=== PATIENT | male | born 1955 | race Caucasian/White ===

== ENCOUNTER 2018-09-18 22:31 | Emergency (ER) | payer MEDICAID ==
[~2018-09-18] VITALS: Ht 170.2 cm; Wt 68.5 kg
[2018-09-18 22:46] VITALS: BP 189/113
[2018-09-19] MEDS ORDERED: TRAM50TA2 PO (01:28)
== END 2018-09-19 02:15 | disposition home or self-care (01) ==
LOC: ER 22:32
DX: K02.9 Dental caries, unspecified (principal); Z98.890 Other specified postprocedural states; Z79.899 Other long term (current) drug therapy
CPT/HCPCS: 99283

== ENCOUNTER 2018-10-08 04:08 | Emergency (ER) | payer MEDICAID ==
[~2018-10-08] VITALS: Ht 170.2 cm; Wt 77.3 kg
[2018-10-08] MEDS ORDERED: LORazepam 2 mg/ml vial IV ONE (04:25)
[2018-10-08] MEDS ORDERED: ondansetron/PF 4mg/2ml inj IV ONE (05:05)
[2018-10-08] MEDS ORDERED: HYDR-3686 PO (05:06)
[2018-10-08] MEDS ORDERED: ONDA4TAB6 PO (05:06)
[2018-10-08 05:33] VITALS: BP 137/86
[2018-10-08] MEDS ORDERED: NAPR-1166 PO (16:20)
[2018-10-08] MEDS ORDERED: DIPH25CA83 PO (16:20)
== END 2018-10-08 05:36 | disposition home or self-care (01) ==
LOC: ER 04:09
DX: F41.9 Anxiety disorder, unspecified (principal); R11.2 Nausea with vomiting, unspecified; Z98.890 Other specified postprocedural states; Z79.899 Other long term (current) drug therapy
CPT/HCPCS: 93005; 96374; 96375; 99284; J2060; J2405

== ENCOUNTER 2018-10-08 10:49 | Emergency (ER) | payer MEDICAID ==
[~2018-10-08] VITALS: Ht 170.2 cm; Wt 79.5 kg
[~2018-10-08 10:49] MED LIST: HYDR-3686 PO; ONDA4TAB6 PO
[2018-10-08 11:36] LABS: BASOPHILS % (AUTO) 0.3 % (0-1); EOSINOPHILS % (AUTO) 0.2 % (0-6); HEMOGLOBIN 14.1 g/dl (14.0-17.9); LYMPHOCYTES % (AUTO) 11.7 % (21-51); MEAN CORPUSCULAR HEMOGLOBIN 32.4 PG (27.0-31.0); MEAN CORPUSCULAR HGB CONC 34.4 g/dL (33.0-36.5); MEAN CORPUSCULAR VOLUME 94.4 FL (78-98); MEAN PLATELET VOLUME 7.7 FL (7.4-10.4); MONOCYTES # (AUTO) 0.5 X10'3 (0-0.9); MONOCYTES % (AUTO) 6.3 % (2-12); NEUTROPHILS # (AUTO) 7.1 X10'3 (1.8-7.7); NEUTROPHILS % (AUTO) 81.5 % (42-75); PLATELET COUNT 280 X10'3 (140-440); RED BLOOD COUNT 4.34 X10'6 (4.70-6.10); RED CELL DISTRIBUTION WIDTH 13.3 % (11.5-14.5); WHITE BLOOD COUNT 8.7 X10'3 (4.5-11.0)
[2018-10-08 11:51] LABS: PARTIAL THROMBOPLASTIN TIME 26 SECONDS (22-32); PROTHROMBIN TIME 9.8 SECONDS (9.0-12.0)
[2018-10-08 11:54] LABS: ALANINE AMINOTRANSFERASE 25 U/L (12-78); ALBUMIN 3.6 G/DL (3.4-5.0); ALBUMIN/GLOBULIN RATIO 0.9 (1.1-1.5); ALKALINE PHOSPHATASE 67 IU/L (46-116); ANION GAP 6 (8-16); ASPARTATE AMINO TRANSFERASE 16 U/L (10-37); BILIRUBIN,TOTAL 0.4 MG/DL (0.1-1.0); BLOOD UREA NITROGEN 21 MG/DL (7-18); BUN/CREATININE RATIO 23.3 (5.4-32.0); CALCIUM 9.3 MG/DL (8.5-10.1); CHLORIDE 95 MMOL/L (99-107); GLUCOSE 145 MG/DL (70-104); POTASSIUM 3.9 MMOL/L (3.5-5.1); SODIUM 128 MMOL/L (135-145); TOTAL CARBON DIOXIDE 27.4 MMOL/L (24-32); TOTAL PROTEIN 7.6 G/DL (6.4-8.2); eGFR 86 ML/MIN
[2018-10-08] MEDS ORDERED: DIPH25CA83 PO (16:20)
[2018-10-08] MEDS ORDERED: NAPR-1166 PO (16:20)
[2018-10-08] MEDS ORDERED: normal saline 1000ml 1,000 ML IVB ONE (16:35)
[2018-10-08 16:37] LABS: CLARITY,URINE CLEAR (Clear); COLOR,URINE YELLOW (Yellow); GLUCOSE, URINE NEGATIVE (Neg); KETONES,URINE NEGATIVE (Neg); LEUKOCYTE ESTERASE ,URINE NEGATIVE (Neg); NITRITES, URINE NEGATIVE (Neg); OCCULT BLOOD,URINE NEGATIVE (Neg); PH,URINE 5.5 (4.8-8.0); PROTEIN,URINE NEGATIVE (Neg); UROBILINOGEN,URINE 0.2 E.U/dL (0.2-1.0)
[2018-10-08 16:39] LABS: UA COLLECTION TYPE URINAL
[2018-10-08 19:08] VITALS: BP 178/98
== END 2018-10-08 19:11 | disposition left against medical advice (07) ==
LOC: ER 10:50
DX: S09.90XA Unspecified injury of head, initial encounter (principal); R53.1 Weakness; E87.1 Hypo-osmolality and hyponatremia; R11.2 Nausea with vomiting, unspecified; Z98.890 Other specified postprocedural states; Z79.899 Other long term (current) drug therapy; W22.8XXA Striking against or struck by other objects, initial encounter; Y93.89 Activity, other specified; Y92.89 Other specified places as the place of occurrence of the external cause; Y99.8 Other external cause status
CPT/HCPCS: 36415; 70450; 71045; 80053; 81003; 84484; 85025; 85610; 85730; 93005; 96360; 96361; 99284; J7030

== ENCOUNTER 2023-04-13 15:17 | Emergency (ER) | payer MEDICARE, MEDICAID ==
[~2023-04-13] VITALS: Ht 170.2 cm; Wt 77.3 kg
[~2023-04-13 15:17] MED LIST changes: +DIPH25CA83 PO; -HYDR-3686 PO; +NAPR-1166 PO; -ONDA4TAB6 PO
[2023-04-13 15:43] VITALS: BP 182/98; PULSE 84; RESP 20; TEMP 97.5; O2SAT 97
[2023-04-13] MEDS ORDERED: ketorolac trometh inj. 60 MG/2 ML VIAL IM ONE (17:40)
[2023-04-13] MEDS ORDERED: NAPR-56 PO (17:53)
[2023-04-13] MEDS ORDERED: DOXY-135 PO (17:53)
--- NOTE | 2023-04-13 18:30 | NUR ---
pt left prior to toradol injection
== END 2023-04-13 18:31 | disposition home or self-care (01) ==
LOC: ER 15:18
DX: K04.7 Periapical abscess without sinus (principal); Z79.899 Other long term (current) drug therapy
CPT/HCPCS: 99283

== ENCOUNTER 2024-07-27 12:28 | Emergency (ER) | payer MEDICARE, MEDICAID ==
[~2024-07-27] VITALS: Ht 170.2 cm; Wt 81.8 kg
[2024-07-27 12:47] VITALS: TEMP 98.1
[2024-07-27] MEDS: LIDOcaine 1% W/epiNEPHrine 1:100,000 20ml vial SQ ONE (13:25)
[2024-07-27] MEDS: acetaminophen 325mg tablet PO ONE (13:25)
[2024-07-27] MEDS: ALPRAZolam 0.5mg tablet PO ONE (13:25)
[2024-07-27 16:22] VITALS: BP 169/101; PULSE 92; RESP 16; O2SAT 97
== END 2024-07-27 16:26 | disposition home or self-care (01) ==
LOC: ER 12:29
DX: S01.81XA Laceration without foreign body of other part of head, initial encounter (principal); M25.512 Pain in left shoulder; I49.9 Cardiac arrhythmia, unspecified; Z98.890 Other specified postprocedural states; V43.52XA Car driver injured in collision with other type car in traffic accident, initial encounter; Y93.89 Activity, other specified; Y92.410 Unspecified street and highway as the place of occurrence of the external cause; Y99.8 Other external cause status
CPT/HCPCS: 12001; 70450; 71045; 72040; 73010; 93005; 99284; A6402; Z7610; A6449